=== PATIENT | female | born 1955 | race Caucasian/White ===

== ENCOUNTER 2016-08-17 11:39 | Emergency (ER) | payer BC ==
[~2016-08-17] VITALS: Ht 165.1 cm; Wt 68.0 kg
[2016-08-17 11:39] VITALS: BP_SYST 138
[~2016-08-17 11:39] MED LIST: FLEXERIL PO; LYRICA PO
--- NOTE | 2016-08-17 11:39 | NUR ---
Pt BIB , placed to ER bed 1 and to gown. Pt placed on monitor and storage bin tender and pulse oximetry. Pt c/o chest pain localized substernally that radiates to Left back. Pt states that the C/P began while she was driving, but went home. Pain more severe so brought her here to ER. Pain elicited per palpation of sternum and left lower rib cage. Pt states that she has a hx of fibromyalgia and anxiety. Pt also states that she has experienced this episode before.
--- NOTE | 2016-08-17 11:42 | NUR ---
Patient alert and oriented x4, present. Patient states has been having upper abdominal pain/chest pain that radiates to left lower abdomen and left lower back for 30 mins. Upper chest and upper abdomen tender to touch. States nausea began with pain 30 mins ago. Denies vomiting/diarrhea. Denies shortness of breath, feeling faint/passing out. Hyperventilation noted. No other complaints/injuries per patient or noted.
[2016-08-17] MEDS ORDERED: KETAMINE HCL 500 MG/10 ML VIAL ONE (12:09)
[2016-08-17] MEDS ORDERED: NACL 0.9% 1,000 ML IV ONE (12:34)
[2016-08-17 12:45] LABS: BASOPHILS % (AUTO) 0.4 % (0.0-2.0); EOSINOPHILS % (AUTO) 0.2 % (0.0-4.0); HEMATOCRIT 42.2 % (36-48); HEMOGLOBIN 14.2 g/dL (12.0-16.0); LYMPHOCYTES # (AUTO) 1.4 K/uL (1.0-5.5); LYMPHOCYTES % (AUTO) 15.8 % (20.5-51.5); MEAN CORPUSCULAR HEMOGLOBIN 28 pg (27-31); MEAN CORPUSCULAR HGB CONC 34 % (32-36); MEAN CORPUSCULAR VOLUME 85 fL (79.0-98.0); MONOCYTES # (AUTO) 0.5 K/uL (0.0-1.0); NEUTROPHILS # (AUTO) 7.2 K/uL (1.8-7.7); NEUTROPHILS % (AUTO) 77.6 % (40.0-70.0); PLATELET COUNT (AUTO) 184 K/uL (130-430); RED BLOOD CELL COUNT(AUTO) 4.99 MIL/uL (4.2-6.2); RED CELL DISTRIBUTION WIDTH 13.1 % (9.0-15.0); WHITE BLOOD COUNT (AUTO) 9.1 K/uL (4.8-10.8)
[2016-08-17] MEDS ORDERED: ONDANSETRON HCL 4 MG/2 ML VIAL IVP ONE (12:45)
[2016-08-17] MEDS ORDERED: MORPHINE 4 MG/ML INJ. SYRINGE IVP ONE ×2 (12:45→14:00)
[2016-08-17 12:48] LABS: CALCIUM 9.4 mg/dL (8.4-11.0); CREATININE 1.34 mg/dL (0.55-1.30); POTASSIUM 4.1 mmol/L (3.5-5.1)
[2016-08-17 12:54] LABS: ALBUMIN 4.4 g/dL (3.4-4.8); TOTAL BILIRUBIN 0.7 mg/dL (0.0-1.0); TOTAL PROTEIN, SERUM 7.9 g/dL (6.4-8.3)
[2016-08-17 13:21] LABS: BILIRUBIN,URINE NEGATIVE (NEGATIVE); CLARITY/URINE CLEAR (CLEAR); COLOR,URINE YELLOW (YELLOW); GLUCOSE,URINE NEGATIVE (NEGATIVE); KETONES,URINE TRACE (NEGATIVE); LEUKOCYTE ESTERASE ,URINE NEGATIVE (NEGATIVE); NITRITE, URINE NEGATIVE (NEGATIVE); PROTEIN URINE NEGATIVE (NEGATIVE); UROBILINOGEN,URINE 0.2 (0.2-1.0)
[2016-08-17 13:24] LABS: BLOOD, URINE TRACE (NEGATIVE)
[2016-08-17 13:33] LABS: BACTERIA,URINE RARE /HPF (None Seen); RBC,URINE NONE SEEN /HPF (0-3); WBC,URINE NONE SEEN /HPF (0-3)
--- NOTE | 2016-08-17 13:45 | NUR ---
Patient in stable condition, speaking with .
[2016-08-17] MEDS ORDERED: KETOROLAC TROMETHAMINE 15 MG VIAL IVP ONE (14:15)
--- NOTE | 2016-08-17 14:55 | NUR ---
Patient in stable condition, states that all pain has greatly decreased. No shortness of breath per patient or noted.
[2016-08-17 15:22] VITALS: BP_SYST 117
--- NOTE | 2016-08-17 15:22 | NUR ---
Patient given written and verbal discharge instructions and verbalizes understanding. ER MD RODRIGUEZ discussed with patient the results and treatment provided. Patient in stable condition. ID arm band removed. IV catheter removed intact and dressing applied, no active bleeding. Rx of NORCO 5-325 AND MOTRIN given. Patient educated on pain management and to follow up with PMD. Pain Scale 2/10. Opportunity for questions provided and answered.
== END 2016-08-17 15:22 | disposition home or self-care (01) ==
LOC: SED 11:39
DX: N23 Unspecified renal colic (principal); R91.1 Solitary pulmonary nodule; N32.89 Other specified disorders of bladder
CPT/HCPCS: 36415; 71010; 74176; 76700; 80053; 81000; 83690; 84484; 85025; 93005; 96361; 96374; 96375; 96376; 99285; J1885; J2270; J2405; J7030

== ENCOUNTER 2016-12-24 12:39 | Outpatient (CLI) | payer BC | END 2016-12-24 20:16 | disposition home or self-care (01) | LOC: SRD 12:39 → SMA 20:16 | PROVIDERS: ATTEND Internal Medicine | DX: Z12.31 Encounter for screening mammogram for malignant neoplasm of breast (principal) | CPT/HCPCS: G0202 ==

== ENCOUNTER 2017-05-23 10:27 | Outpatient (CLI) | payer BC | END 2017-05-23 19:00 | disposition home or self-care (01) | LOC: SRD 10:27 | PROVIDERS: ATTEND Internal Medicine | DX: M25.561 Pain in right knee (principal) | CPT/HCPCS: 73564 ==

== ENCOUNTER 2017-06-02 08:38 | Outpatient (CLI) | payer BC | END 2017-06-02 19:43 | disposition home or self-care (01) | LOC: SMA 08:38 | PROVIDERS: ATTEND Internal Medicine | DX: R92.8 Other abnormal and inconclusive findings on diagnostic imaging of breast (principal) | CPT/HCPCS: 77066 ==

== ENCOUNTER 2018-03-21 07:49 | Outpatient (CLI) | payer BC | END 2018-03-21 21:08 | disposition home or self-care (01) | LOC: SUS 07:49 | PROVIDERS: ATTEND Internal Medicine | DX: R13.10 Dysphagia, unspecified (principal); R10.2 Pelvic and perineal pain | CPT/HCPCS: 70360-TC; 76830-TC; 76857 ==

== ENCOUNTER 2018-07-27 07:48 | Outpatient (CLI) | payer BC | END 2018-07-27 21:05 | disposition home or self-care (01) | LOC: SUS 07:48 | PROVIDERS: ATTEND Internal Medicine | DX: N83.202 Unspecified ovarian cyst, left side (principal); Z78.0 Asymptomatic menopausal state | CPT/HCPCS: 76830-TC; 76857 ==

== ENCOUNTER 2020-03-24 12:35 | Outpatient (CLI) | payer OTHER | END 2020-03-24 21:08 | disposition home or self-care (01) | LOC: SRD 12:35 | PROVIDERS: ATTEND Internal Medicine | DX: Z12.31 Encounter for screening mammogram for malignant neoplasm of breast (principal) | CPT/HCPCS: 77067 ==